=== PATIENT | male | born 1940 | race Caucasian/White ===

== ENCOUNTER 2018-04-04 07:46 | Emergency (ER) | payer OTHER ==
[2018-04-04] MEDS: LIDOCAINE 2%/EPI MPF (SDV) 20 ML VIAL INJ (08:53)
[2018-04-04] MEDS: DIPHTH/TET/ACEL PERTUSS (ADULT) 0.5 ML VIAL IM* (08:55)
== END 2018-04-04 09:44 | disposition home or self-care (01) ==
LOC: E/R 07:46
DX: S01.112A Laceration without foreign body of left eyelid and periocular area, initial encounter (principal); R40.2142 Coma scale, eyes open, spontaneous, at arrival to emergency department; R40.2252 Coma scale, best verbal response, oriented, at arrival to emergency department; R40.2362 Coma scale, best motor response, obeys commands, at arrival to emergency department; I10 Essential (primary) hypertension; W01.0XXA Fall on same level from slipping, tripping and stumbling without subsequent striking against object, initial encounter; Y92.480 Sidewalk as the place of occurrence of the external cause; Z23 Encounter for immunization
CPT/HCPCS: 12013; 70450; 90471; 90715; 99284-25